=== PATIENT | male | born 1960 | race Caucasian/White ===

== ENCOUNTER 2018-03-23 08:53 | Day surgery (SDC) | payer OTHER ==
[~2018-03-23 08:53] MED LIST: PROPOFOL 200 MG INJ
[2018-03-23] MEDS ORDERED: CIPROFLOXACIN 400MG/D5W 0 ML (11:31)
[2018-03-23] MEDS ORDERED: LIDOCAINE 2% (SDV) 5 ML INJ (11:32)
[2018-03-23] MEDS ORDERED: PROPOFOL 60 ML (11:32)
== END 2018-03-23 14:43 | disposition home or self-care (01) ==
LOC: GIL 08:53
DX: K59.00 Constipation, unspecified (principal); K29.30 Chronic superficial gastritis without bleeding; D12.7 Benign neoplasm of rectosigmoid junction; K20.9 Esophagitis, unspecified; Q39.9 Congenital malformation of esophagus, unspecified; K64.8 Other hemorrhoids
CPT/HCPCS: 43239; 88305; 88312

== ENCOUNTER 2018-10-27 23:38 | Emergency (ER) | payer OTHER ==
[2018-10-28] MEDS: HYDROCODONE/APAP (10/325) TAB PO (00:36)
[2018-10-28] MEDS: ONDANSETRON (ODT) 4 MG TAB ODT (00:36)
== END 2018-10-28 02:32 | disposition home or self-care (01) ==
LOC: E/R 23:38
DX: M25.511 Pain in right shoulder (principal); M79.671 Pain in right foot; M79.672 Pain in left foot; M25.561 Pain in right knee; M25.562 Pain in left knee; F17.210 Nicotine dependence, cigarettes, uncomplicated
CPT/HCPCS: 73030; 73030-RT; 73562-50; 73630-50; 99284-25